=== PATIENT | female | born 1995 | race American Indian/Alaskan Native ===

== ENCOUNTER 2018-05-07 15:13 | Observation (INO) | payer MEDICAID ==
[2018-05-07] MEDS ORDERED: Carboprost Tromethamine 250 MCG/1 ML Amp IM PRN (15:57)
[2018-05-07] MEDS ORDERED: Sodium Chloride 0.9% 10 ML Syringe FLUSH PRN ×2 (15:57→23:04)
[2018-05-07] MEDS ORDERED: Oxytocin/Normal Saline 30 UNIT/500 ML BAG IV PRN (15:57)
[2018-05-07] MEDS ORDERED: Lidocaine 1% 30 ML SDV INJECT PRN (15:57)
[2018-05-07] MEDS ORDERED: Misoprostol 25 MCG (1/4 of 100 MCG) Tab VAG PRN (15:57)
[2018-05-07] MEDS ORDERED: Tranexamic Acid 1,000 MG in Sodium Chloride 0.9% 100 ML IV PRN (15:57)
[2018-05-07] MEDS ORDERED: Lactated Ringers 500 ML IV ONE (15:57)
[2018-05-07] MEDS ORDERED: Misoprostol 400 MCG (4 X 100 MCG TAB) RECTAL PRN (15:57)
[2018-05-07] MEDS ORDERED: Acetaminophen 325 MG Tab PO PRN (15:57)
[2018-05-07] MEDS ORDERED: Methylergonovine 0.2 MG/1 ML Amp IM PRN (15:57)
[2018-05-07] MEDS ORDERED: Oxytocin/Normal Saline 30 UNIT/500 ML BAG IV SCH (16:00)
[2018-05-07] MEDS ORDERED: Penicillin G Potassium 5 MILLUNITS in Sodium Chloride 0.9% 100 ML IV ONE (16:08)
[2018-05-07] MEDS: Lactated Ringers 1,000 ML IV SCH ×2 (16:25→20:32)
[2018-05-07] MEDS: Penicillin G Potassium 2.5 MILLUNITS in Sodium Chloride 0.9% 100 ML IV SCH (19:46)
[2018-05-07] MEDS ORDERED: fentaNYL 100 MCG/2 ML SDV ONE (20:08)
[2018-05-07] MEDS: Ondansetron 4 MG/2 ML SDV IV PRN (20:16)
--- NOTE | 2018-05-07 20:44 | PCM.SN ---
- Free Text/Narrative Note: Intrathecal. Sittting position, sterile prep and drape. 1 % lidocaine w bicarb for skinwheal to L2 L3 interspace. Introducer, 24 pa pencan x 2. Pos CSF, neg heme, neg parasthesia. 20 mcg pf sufenta, 30 mcg pf fentanyl, 0.4 ml pf NS and 6 mg of 0.75% pf bupivacaine injected after CSF aspiration. Pt to L lateral position. Procedure time 2014 to 2044
[2018-05-07] MEDS ORDERED: Docusate Sodium 100 MG Cap PO PRN (23:04)
[2018-05-07] MEDS ORDERED: Benzocaine/Menthol 20%-0.5% Spray 56 GM Canister TOP PRN (23:04)
[2018-05-07] MEDS ORDERED: Zolpidem 5 MG Tab PO PRN (23:04)
[2018-05-07] MEDS ORDERED: Oxytocin 10 Units/1 ML SDV IM PRN (23:04)
[2018-05-07] MEDS ORDERED: Simethicone 80 MG Tab.Chew PO PRN (23:04)
[2018-05-08] MEDS: Penicillin G Potassium 2.5 MILLUNITS in Sodium Chloride 0.9% 100 ML IV SCH (00:36)
[2018-05-08] MEDS: Ondansetron 4 MG/2 ML SDV IV PRN (01:32)
[2018-05-08] MEDS: Prenatal Multivitamin with Calcium/Folic Acid/Iron Tab PO SCH (09:18)
[2018-05-08] MEDS: Ibuprofen 800 MG Tab PO PRN ×2 (09:18→19:54)
--- NOTE | 2018-05-08 09:24 | HP ---
PATIENT IDENTIFICATION: Aguila Larson is a 22-year-old, G4, P0-2-1-2, intrauterine at 41 and 1/7 weeks by 29-week ultrasound, who presents with occasional contraction and postdate . HISTORY OF PRESENT ILLNESS: The patient has been following Dr. Garcia at [facility] in [place] as well as in the [facility] where she recently moved a couple weeks ago. She presented to the [facility] today and saw Dr. Gordon. Due to her postdates as well as having some contractions and then with serial evaluations and cervical change as well as with history of living far from the hospital and current weather system coming, shared decision was made to proceed with augmentation of labor. To put this in context, she is GBS positive. Records were called for, reviewed as below, and supplemented by the patient's history. ANTEPARTUM LABORATORY DATA: ABO blood type A positive. Negative antibody. Rubella immune. Syphilis antibody is nonreactive. Negative hepatitis B surface antigen. Negative hep C, HIV, GC, and Chlamydia. Wet prep positive for clue cells on 02/10/2018. One-hour GTT on 02/17/2018, was 99, and GBS was positive on 03/31/2018. OBSTETRICAL HISTORY: 1. On 04/10/2015, 30 weeks, delivered a female, spontaneous vaginal delivery, weighing 2268 g, complicated by preeclampsia. 2. On 11/14/2011, 30 weeks, male, spontaneous vaginal delivery, weighing 2268 g with abruption noted. 3. Spontaneous AB in 2013 with a D and C. ALLERGIES: Bactrim. MEDICATIONS: vitamins. PAST MEDICAL/PAST SURGICAL HISTORY: Remarkable for D and C and fasciotomy after age 1 due to staph infection and left leg fracture x2 with rods with second surgery. Otherwise past medical history as above. FAMILY HISTORY: Negative family history of defects, clotting disorders, or anesthesia problems. SOCIAL HISTORY: The patient recently moved to the [facility]. Had been in the [facility] before. Does smoke. Denies any alcohol and denies drug use in the past as had been in the Treatment Center. REVIEW OF SYSTEMS: The patient describes swelling, decreased in the legs. Denies any headaches, visual changes, or upper abdominal pain. She describes some minimal spotting after vaginal exam done over at the clinic. Otherwise, review of systems was fully reviewed and felt to be noncontributory. OBJECTIVE: Vital Signs: Blood pressure 118/80, heart rate 92. The patient feels afebrile. Respiratory rate is between 12 and 16. Appearance: Female, appears her stated age, acting appropriate for age, nontoxic in appearance. HEENT: Head is atraumatic. EOMs intact. PERRLA. No scleral icterus. No obvious otorhinorrhea. Mucous membranes are moist. Neck: No obvious tenderness. Lungs: Clear to auscultation bilaterally. No increased work of breathing. Heart: S1 and S2. Regular rate and rhythm. Abdomen: Gravid. [employer]ak indeterminate. Nontender and nondistended. Bowel sounds positive. No organomegaly, pulsatile masses, or obvious hernias. No rebound, rigidity, or guarding. Genitourinary: Normal external female genitalia. Normal position and presentation of the urethra. Vaginal exam reveals her to be 4 cm, 75% effaced, -1 to -2 station. Bag of water felt. Vertex suspected. Extremities: Trace pedal edema with scar on the left leg. Deep tendon reflexes 2/4 bilaterally and symmetric in the lower extremities. Psychiatric: Mood and affect are congruent. Judgment and insight are intact. Skin: Without any cyanosis, clubbing, or jaundice. LABORATORY DATA: Pending is a UDS as well as a CBC. NST found to be reactive and reassuring. Tocometer difficult to read contractions versus irritability. The patient describes having some occasionally. ASSESSMENT: 1. Intrauterine at 41 and 1/7 weeks by 29-week ultrasound. 2. Group B Streptococcus positive. We will start penicillin immediately. 3. Cervical change. The patient was 4 cm on above evaluation, and prior at the clinic, she was approximately 2 cm, having occasional contractions, and after further review, the patient does describe having quick rapid delivery and labors. In light of this as well as storm coming and her living far from the hospital, we will proceed with augmentation of labor with slow Pitocin and start penicillin as above. 4. History of preeclampsia with previous . Stated she took baby aspirin 12 or 13 times during her . 5. History of abruption. 6. History of delivery x2. 7. 4, para 0-2-1-2. 8. History of Chlamydia per chart review. Negative as above under antepartum labs. PLAN: The patient will be admitted, penicillin started, Pitocin thereafter, and we will continue to follow clinically and closely. The patient understands and agrees with the above treatment plan. [facility] /[id number]
--- NOTE | 2018-05-08 09:36 | PN ---
DATE: 05/07/2018 SUBJECTIVE: The patient is feeling her contractions a little bit more. Pitocin has been started. OBJECTIVE: heart tones in the 130s to 140s, reactive in nature. Tocometer reveals contractions every 2 to 3 minutes. Vaginal exam reveals her to be 5 cm, 75% effaced, -1 to - 2 station, vertex suspected and bag of water is felt. Last blood pressure 128/80 with a heart rate of 81. LABORATORY DATA: Revealed a white cell count of 9.1, hemoglobin of 11.1, platelets of 143,000. Urine drug screen negative. ASSESSMENT AND PLAN: Intrauterine at 41 and 1/7 weeks by 29-week ultrasound, GBS positive status. The patient with second dose of penicillin due at 8:30, approximately an hour from now, admitted with cervical change and contractions with history of preeclampsia and abruption with previous pregnancies, history of delivery x2 in a G4, P0-2-1-2, now diagnosed with gestational thrombocytopenia. We will continue to follow clinically and closely. Pain meds as needed. We will consider artificial rupture of membranes in the future. The patient understands and agrees with the above treatment plan. [facility] /[id number]
--- NOTE | 2018-05-08 09:39 | PN ---
DATE: 05/07/2018 SUBJECTIVE: The patient is comfortable status post her intrathecal. OBJECTIVE: Last blood pressure was 121/76, heart rate 78. Tocometer reveals contractions every 2 to 4 minutes on average. heart tones 135 baseline and reactive. Vaginal exam reveals her to be 7 cm, 80% effaced, -1 station, vertex suspected, and artificial rupture of membranes done after discussion with the patient yielding copious amounts of clear fluid with some minimal bloody show. ASSESSMENT AND PLAN: Intrauterine at 41 and 1/7 weeks by 29 week ultrasound, group B Streptococcus positive status. The patient now status post 2 doses of penicillin, admitted with cervical change and noted to have gestational thrombocytopenia with history of delivery x2 with abruption of preeclampsia with previous , in a G4, P0-2-1-2, now with Pitocin at 8 milliunits per minute and having continued cervical change status post artificial rupture of membranes as above. We will continue to follow clinically and closely. The patient understands and agrees with the above treatment and plan. [facility] /[id number]
--- NOTE | 2018-05-08 10:00 | DEL ---
DATE: 05/07/2018 PREOPERATIVE DIAGNOSES: 1. Intrauterine at 41 and 1/7 weeks by 29-week ultrasound. 2. Cervical change, labor suspected upon admission. 3. Group B streptococcus positive, antibiotics given appropriately. 4. Gestational thrombocytopenia. 5. History of preeclampsia with 1 previous . 6. History of abruption with 1 previous . 7. History of delivery x2. 8. History of Chlamydia, resolved in this . Please see history and physical. 9. 4, para 0-2-1-2. POSTOPERATIVE DIAGNOSES: 1. Intrauterine at 41 and 1/7 weeks by 29-week ultrasound, delivered. 2. Cervical change, labor suspected upon admission. 3. Group B streptococcus positive, antibiotics given appropriately. 4. Gestational thrombocytopenia. 5. History of preeclampsia with 1 previous . 6. History of abruption with 1 previous . 7. History of delivery x2. 8. History of Chlamydia, resolved in this . Please see history and physical. 9. 4, para 0-2-1-2. 10.Nuchal cord x1, reduced bluntly with delivery. PROCEDURES PERFORMED: NST, Pitocin augmentation, artificial rupture of membranes, spontaneous vaginal delivery. [employer] INSPECTOR: Zita Alamo, MS-III. ANESTHESIA/ANALGESIA: The patient did receive an intrathecal in the first stage of labor. ESTIMATED BLOOD LOSS: 350 mL. FINDINGS: Female. scores 9 and 9. Weighing 8 pounds 2 ounces (3695 g). SUMMARY OF EVENTS: The patient is a 22-year-old G4, P0-2-1-2, intrauterine at 41 and 1/7 weeks by 29-week ultrasound, who was admitted with cervical change. She is GBS positive status. Penicillin was given, and she received at least 2 doses prior to delivery. As part of the workup, gestational thrombocytopenia was noted, platelets in the 140,000 range. She subsequently underwent the above procedures, including Pitocin augmentation and artificial rupture of membranes. She did receive an intrathecal in the first stage of labor. She was found to be complete. I was called to the room and donned sterile gown and gloves as well did Zita Alamo. She subsequent started pushing with contractions. vertex was delivered in RUSTY presentation. Nuchal cord x1 was noted, reduced bluntly with delivery at that time, and anterior and posterior shoulder as well as rest of the infant delivered without difficulty thereafter. Mouth and nares were suctioned. Cord was doubly clamped and cut, and was resuscitated on mother's abdomen. Then, approximately 10 mL of cord blood was obtained for labs. Placenta was then delivered with gentle cord traction and fundal massage within 30 minutes. Perineum, vagina, perirectal areas were then examined and noted to have small bilateral periurethral abrasions, nonbleeding, non-repaired after discussion with the patient. Mother and are currently stable at the time of dictation. [facility] /[id number]
--- NOTE | 2018-05-08 10:17 | OBOUT ---
DATE: 05/07/2018 DATE AND TIME OF NST: Date: 05/07/2018 Time: 1537 hours to 1557 hours. REASON FOR NST: 1. Intrauterine at 41 and 1/7 weeks by 29-week ultrasound. 2. GBS positive. 3. Cervical change. 4. History of preeclampsia. 5. History of abruption. 6. History of delivery x2. 7. 4, para 0-2-1-2. NST INTERPRETATION: During this time period, heart tone baseline is approximately 125 to 130 and there are at least two 15 x 15 beats per minute accelerations making this strip reactive. It is also noted to be reassuring. Tocometer reveals irritability versus contractions. ASSESSMENT: 1. Nonstress test, reactive and reassuring. 2. Tocometer with questionable contractions versus irritability. The patient is mildly feeling occasional contraction. PLAN: Please see admit history and physical for further details. [facility] /[id number]
--- NOTE | 2018-05-08 10:48 | PN ---
DATE: 05/08/2018 SUBJECTIVE: Aguila is day 1 from spontaneous vaginal delivery of term female at 41 weeks and 1 day gestation. Overnight, she developed nausea that was relieved with ondansetron. She also had multiple episodes of diarrhea with associated symptoms of chills. She has not had a documented fever. She is able to tolerate activity, drinking liquids, and some solid foods. She is also urinating well. She reports bleeding and cramping as expected. This is relieved with Tylenol. OBJECTIVE: Vital Signs: Blood pressure 132/67, heart rate 67 beats per minute, respiration rate 16 breaths per minute. General: The patient is alert, cooperative, and in no acute distress. HEENT: Grossly normal. Lungs: Clear to auscultation bilaterally. Heart: Regular rate and rhythm. Abdomen: Uterus is palpated 2 cm below the umbilicus. Abdomen is soft, nontender. Extremities: No edema or erythema present. Calves are nontender to palpation. RECENT LABORATORY VALUES: White blood cell count of 10.2, red blood cell count of 3.73, hemoglobin of 9.5, and platelets of 111. ASSESSMENT: Aguila is day 1 from spontaneous vaginal delivery of a term female at 41 weeks and 1 day gestation. 1. Group B streptococcus positive. Received 2 doses of penicillin during labor. 2. History of delivery x2. 3. 4, now para 3. 4. History of preeclampsia. 5. Gestational thrombocytopenia. 6. Nuchal cord x1, reduced. PLAN: We will continue to follow the patient closely and clinically with routine cares. The patient is . [facility] /[id number] seen and agreed -DCW The patient was seen today by myself and Dr. Adis Rivers. Assessment and plan are under advisement of Dr. Rivers. Zita Alamo [facility]
[2018-05-08] MEDS: Acetaminophen 325 MG Tab PO PRN (12:15)
[2018-05-09] MEDS: Acetaminophen 325 MG Tab PO PRN (00:49)
[2018-05-09] MEDS: Ibuprofen 800 MG Tab PO PRN (07:24)
[2018-05-09] MEDS: Prenatal Multivitamin with Calcium/Folic Acid/Iron Tab PO SCH (10:18)
--- NOTE | 2018-05-09 11:18 | PN ---
DATE: 05/09/2018 SUBJECTIVE: The patient is day 2 from spontaneous vaginal delivery of a term female at 41 weeks and 1/7 days gestation. She has had resolution of her diarrhea. She has also developed low back pain overnight. She describes the back pain as an ache that is in her lower back and radiates to each side. She denies pain running down either leg, loss of sensations, or loss of strength. This pain is unrelieved with positional changes and hydration. She is not taking medication for this pain at this time. She is tolerating activities, eating, urinating, and stooling well. She has still bleeding and cramping as expected, but she has no concerns there. She wishes to use a warm bath for relief of her back pain. OBJECTIVE: Vital Signs: Temperature of 36.7 degree Celsius, blood pressure 121/68, heart rate 64 beats per minute, respiration rate 16 breaths per minute. General: The patient is alert, cooperative, and in mild distress from her back pain as noted above in HPI. HEENT: Grossly normal. Lungs: Clear to auscultation bilaterally. Heart: Regular rate and rhythm. Abdomen: Uterus is palpated about 2 cm below the umbilicus. Abdomen is soft and nontender. Back: Mild tenderness to palpation of the low back at the level of L2 and L3. Extremities: No edema or erythema present. No tenderness to palpation of calves bilaterally. LABORATORY DATA: Pending at this time. CBC was placed prior to discharge and we are waiting on the results of that. ASSESSMENT: Aguila is a day 2 patient from spontaneous vaginal delivery of a term female at 41 weeks and 1 day gestation. 1. She is group B Streptococcus positive, received 2 doses of penicillin during delivery. 2. History of delivery. 3. History of placental abruption. 4. History of preeclampsia. 5. 4 now para 3. 6. History of delivery x2. 7. History of chlamydial infection. 8. Gestational thrombocytopenia. 9. Nuchal cord x1 present at delivery, which was reduced during delivery. 10.Anemia present via CBC results. PLAN: The patient will be discharged to home today with her baby girl. She has no concerns at this time. She was given advisement on using a warm bath, hot pads, and ibuprofen and Motrin for her back pain. The patient is breast feeding. The patient was instructed to follow up with Dr. Genoveva Garcia in 6 weeks for followup. The patient was seen today by myself and Dr. Adis Rivers. Assessment and plan under advisement of Dr. Rivers. seen and agreed [facility] /[id number] [id number]
--- NOTE | 2018-05-09 12:15 | DISCH ---
ADMITTING DIAGNOSES: 1. Intrauterine at 41 and 1/7 weeks by a 29-week ultrasound. 2. Group B streptococcus positive. 3. Contractions with cervical change upon admission. 4. Gestational thrombocytopenia. Platelets of 143,000 upon admit. 5. History of preeclampsia with previous . 6. History of abruption with previous . 7. History of delivery x2. 8. History of chlamydia-negative, earlier in the . 9. 4, para 0-2-1-2. DISCHARGE DIAGNOSES: 1. Intrauterine at 41 and 1/7 weeks by a 29-week ultrasound, delivered. 2. Group B streptococcus positive. 3. Contractions with cervical change upon admission. 4. Gestational thrombocytopenia. Platelets of 143,000 upon admit. 5. History of preeclampsia with previous . 6. History of abruption with previous . 7. History of delivery x2. 8. History of chlamydia-negative, earlier in the . 9. 4, para 0-2-1-2. 10.Number nuchal cord x1, reduced bluntly with delivery. 11.Anemia of acute blood loss. Hemoglobin dropping down to 9.5 from predelivery hemoglobin 11.1 and gestational thrombocytopenia with platelets of 111,000 on 05/08/2018. PROCEDURES PERFORMED: 1. Nonstress test. 2. Pitocin augmentation. 3. Artificial rupture of membranes. 4. Spontaneous vaginal delivery per Dr. Rivers. HISTORY OF PRESENT ILLNESS: Please see H and P. SUMMARY OF HOSPITAL COURSE: The patient was admitted on the above date with the above diagnoses, underwent the above procedures. She did receive penicillin due to her GBS positive status. She went on to have a spontaneous vaginal delivery yielding a female, scores of 9 and 9, weighing 8 pounds 2 ounces (3695 g). Please see the delivery note for further details. day #1 as well as day #2, date of discharge, please see progress notes in terms of discharge evaluation done in conjunction and seen and agreed with COREY Larson. CONDITION ON DISCHARGE COMPARED TO CONDITION ON ADMISSION: Improved. DISCHARGE INSTRUCTIONS: 1. Diet as tolerated. 2. Activity: No lifting more than 20 pounds. No sit-ups, straining, and pelvic rest for the next 6 weeks with immediate return to fertility discussed with the patient. 3. Reasons to return or go to the emergency room were discussed with the patient in detail including, but not limited to, temperature greater than 100.4, foul-smelling discharge, red hot tender breasts, or increased vaginal bleeding. DISCHARGE MEDICATIONS: 1. [id number] Tylenol or ibuprofen for pain. 2. Iron sulfate 325 b.i.d. x6 weeks as well as Colace 100 mg p.o. b.i.d. p.r.n. #60, no refills. FOLLOWUP: Follow up in 6 weeks for , and she wishes to follow up with Dr. Garcia for this. An appointment will be made. I did discuss the importance of followup with her infant. She wishes to follow up in [place] for this, and I did discuss with her the importance of followup and ramifications of not doing so as well as reasons to return or go to the emergency room in regard to her . She understands and agrees with the above treatment plan. [facility] /[id number]
== END 2018-05-09 12:43 | disposition home or self-care (01) ==
LOC: DL.OBCHECK 15:13 → DL.OB 15:37
PROVIDERS: ADMIT Family Medicine; ATTEND Family Medicine
DX: O48.0 Post-term pregnancy (principal); Z37.0 Single live birth; Z3A.41 41 weeks gestation of pregnancy; O99.12 Other diseases of the blood and blood-forming organs and certain disorders involving the immune mechanism complicating childbirth; D69.6 Thrombocytopenia, unspecified; O99.824 Streptococcus B carrier state complicating childbirth; B95.1 Streptococcus, group B, as the cause of diseases classified elsewhere; O99.02 Anemia complicating childbirth; D62 Acute posthemorrhagic anemia; Z87.59 Personal history of other complications of pregnancy, childbirth and the puerperium
CPT/HCPCS: 36415; 59025; 59409; 80305; 85027; A9270; J2405; J2540; J2590; J7050; J7120

== ENCOUNTER 2020-03-03 04:34 | Inpatient (IN) | payer MEDICAID ==
[2020-03-03] MEDS ORDERED: Simethicone 80 MG Tab.Chew PO PRN (05:25)
[2020-03-03] MEDS ORDERED: Misoprostol 400 MCG (4 X 100 MCG TAB) RECTAL PRN (05:25)
[2020-03-03] MEDS ORDERED: Benzocaine/Menthol 20%-0.5% Spray 56 GM Canister TOP PRN (05:25)
[2020-03-03] MEDS ORDERED: Oxytocin 10 Units/1 ML SDV IM PRN (05:25)
[2020-03-03] MEDS ORDERED: Carboprost Tromethamine 250 MCG/1 ML Amp IM PRN (05:25)
[2020-03-03] MEDS ORDERED: Acetaminophen 325 MG Tab PO PRN (05:25)
[2020-03-03] MEDS ORDERED: Tranexamic Acid 1,000 MG in Sodium Chloride 0.9% 100 ML IV PRN (05:25)
[2020-03-03] MEDS ORDERED: Ferric Subsulfate Topical Soln 8 GM (8 ML) Bottle ONE (06:57)
[2020-03-03] MEDS ORDERED: Oxytocin/Normal Saline 0 UNIT/0 ML BAG ONE (06:58)
[2020-03-03] MEDS ORDERED: Silver Nitrate Applicator Each ONE (06:58)
[2020-03-03] MEDS: Ibuprofen 800 MG Tab PO PRN ×2 (08:29→17:21)
[2020-03-03] MEDS: Ferrous Sulfate 325 MG Tab PO SCH (11:12)
[2020-03-03] MEDS: Prenatal Multivitamin with Calcium/Folic Acid/Iron Tab PO SCH (11:12)
[2020-03-03] MEDS: ceFAZolin 1 GM in Premix Bag 1 BAG IV SCH (19:33)
--- NOTE | 2020-03-03 19:43 | HP ---
CHIEF COMPLAINT: Transfer from outside facility post delivery complicated by hemorrhage. HISTORY OF PRESENT ILLNESS: The patient is a 24-year-old 5, now para 2-2-1-4, who delivered a baby this morning at the [place] [facility] at 4:12 a.m. Provider called stating that the patient presented and precipitously delivered within approximately 20 minutes of arrival. She had no care. Initially at delivery, she had approximately 250 mL of estimated blood loss and the placenta was not forthcoming. Delivering provider is not a routine obstetrical provider and their facility is not a delivering hospital. Therefore, I was called to accept the mother and baby in transfer and that was agreed upon. There was a prolonged time between this initial phone call and ambulance transfer being arranged due to some rules and regulations with how patients are transferred. When I called for an update, the placenta still had not delivered and she had now had an additional 500 mL of blood loss. I directed the provider to remove the placenta from the vaginal opening as it was presenting. The baby was en route via ambulance and there were plans for the patient to be life- flighted to [place] because she went on for an additional hemorrhage of about 1500 mL after the placenta delivered. However, after [facility] had accepted, apparently they called back and would be unavailable for approximately 80 minutes. The patient was then going to be taken by ground ambulance to [place]. At this stage I advised transfer by ground to our facility as we would be able to do more to control here at [facility]. I reiterated that she needed bimanual massage. I believe she received a total of 2 doses of 10 mg of IM Pitocin, 1 dose of TXA, 2 L of IV fluids, 800 mcg of rectal Cytotec. They did not have a Hemabate or Methergine available. Provider did accompany the patient for the ambulance transfer, and prior to leaving the hospital in [place], they did report the placenta had delivered, and en route the bleeding was well controlled and her uterus was firm and below the umbilicus. Upon arrival, the patient was on the ambulance cart and pain seemed well controlled at that time. There was no obvious bleeding when we transferred her to the bed. Quick assessment was performed as follows below. HISTORY: No care this . Prior notes indicated blood type A+. OBSTETRICAL HISTORY: 1. 11/14/2011, vaginal delivery, viable male at 30 weeks' gestation, weighing 5#, (about 2268g), complicated by preeclampsia. 2. 2013 with D&C. 3. 04/10/2015, vaginal delivery, a viable female at 30 weeks' gestation, 5# (about 93282b) 4. 05/07/2018, full-term 41+ week female infant, delivered vaginally here at [facility]. weight 3695g, Apgars 9&9. PAST MEDICAL HISTORY: Methamphetamine abuse, history of being sober for 5 years, but restarted using recently. Chlamydia. Placental abruption. Preeclampsia. Needle phobia. Tobacco abuse. SURGERIES: [place] teeth, left fib-tib ORIF, rods have since been removed, right 3rd metatarsal partial bone resection, D&C. . MEDICATION: vitamin. ALLERGIES: Bactrim. FAMILY HISTORY: Father, heart disease, diabetes, stroke, heart attack. He from a ruptured stomach ulcer. Mother is , hit by a motor vehicle while walking. Extended family history, diabetes and heart disease. No known defects, chromosomal anomalies, bleeding or clotting disorders, or severe anesthesia reactions. SOCIAL HISTORY: The patient is unmarried. She quit her job at [employer] because they were requiring her to continue to do heavy lifting. Father of the baby is the same as for her last child and he is not currently working. Living in [place]. Has custody of her youngest daughter. Oldest daughter lives with a grandmother. Son is in placement and she does not have contact. REVIEW OF SYSTEMS: After initial assessment, review was completed. The patient denies any fever, chills, nausea, vomiting, diarrhea, constipation, headaches, blurry vision, chest pain, shortness of breath, abdominal trauma, skin rashes, or other lesions. She is not specific about when she last used methamphetamine, but admitted it was recent. Denied other street drugs and alcohol. Did report she was a light smoker. PHYSICAL EXAMINATION: Vital Signs: T 96.6, Pulse 116, BP 138.80, Resp 16. Head: Normocephalic, atraumatic. Eyes: Color contacts noted. Pupils equal, round, and reactive. Ears, Nose, Mouth: All within normal limits. Mucous membranes are pink and moist. Neck: Supple with no adenopathy. Heart: Regular without murmur. Lungs: Clear to auscultation bilaterally. Abdomen: Soft, nontender. Fundus firm and below the umbilicus. The patient is reporting some right upper quadrant pain, but there palpates no masses. McBurney point tenderness is negative. Genitourinary: External genitalia are within normal limits. No obvious trauma noted. Speculum exam reveals the cervix to be intact with no lacerations. Vaginal sidewalls are normal. No lacerations. Vestibule is remarkable for a superficial anterior laceration that is hemostatic and did not need repair. Posteriorly, no lacerations. Extremities: Normal range of motion. No edema. Psychiatrical: The patient's pain is out of proportion to physical findings and exam. She is just about to fall asleep through much of the exam time. The patient did receive 4 mg of morphine during her transport and I am uncertain how much narcotic she received prior to being transported. She also is known to be a methamphetamine user and maybe coming off that as well. She does request that we hurry up and get her assessment over so that she can go to sleep. Skin: Without acute lesions or skin rashes. Neurological: Reflexes are 2+ equal. No clonus. LABORATORY DATA: Initial hemoglobin in [place] was reported as 12. First hemoglobin we were able to get here was 7.5. ASSESSMENT: 1. Status post precipitous vaginal delivery. 2. Prolonged stage III lasting over 2-1/2 hours. 3. hemorrhage likely due to uterine atony and placental retention for prolonged period of time. 4. No care. 5. Methamphetamine abuse. 6. Tobacco abuse. 7. History of labor and delivery x2. 8. Elevated blood pressure. 9. History of placental abruption. 10 Anemia of acute blood loss. PLAN: The patient is doing well at this time. Blood was sent from [place] to initiate for her, however, it cannot be verified. Therefore, will be discarded and we will transfuse her with typed and cross-matched blood here at our facility initially with 1 unit and then reassess and recheck her hemoglobin in 6 hours to see if additional blood is necessary. Reassured the patient that her clinical findings are now stable and she does not have any additional sources of bleeding that need to be addressed at this time, but we will be watching her closely. We will get a full panel of labs including urine drug screen. We will be making a social work msw consult for disposition on the baby and cord stat will be ordered on the umbilical cord. Placenta was intact full term with some mild calcifications noted. There was also a large approximate 500 mL clot attached to the placenta. It was well organized, but with the prolonged transfer time, it may represent an abruption, and we will continue to watch her for routine cares. Her blood pressures have been elevated despite being severely anemic. Therefore, a full preeclampsia panel will also be evaluated to see if she rules in or out, especially given her history of preeclampsia. [facility] /[id number] BABITA
[2020-03-04] MEDS: Ibuprofen 800 MG Tab PO PRN ×3 (00:52→17:14)
[2020-03-04] MEDS: ceFAZolin 1 GM in Premix Bag 1 BAG IV SCH ×4 (04:04→18:02)
[2020-03-04] MEDS: Docusate Sodium 100 MG Cap PO PRN (08:58)
[2020-03-04] MEDS: Prenatal Multivitamin with Calcium/Folic Acid/Iron Tab PO SCH (08:58)
[2020-03-04] MEDS: Ferrous Sulfate 325 MG Tab PO SCH (08:58)
[2020-03-04] MEDS: Sodium Chloride 0.9% 10 ML Syringe FLUSH PRN ×3 (11:05→18:38)
[2020-03-04 11:43] LABS: C.TRACHOMATIS BY TMA Negative (Negative); N.GONORRHOEAE BY TMA Positive (Negative)
[2020-03-04] MEDS ORDERED: Measles, Mumps & Rubella Vaccine 0.5 ML SDV SUBCUT ONE ×2 (13:21→16:45)
[2020-03-04] MEDS ORDERED: Azithromycin 250 MG Tab PO ONE (13:22)
--- NOTE | 2020-03-05 00:56 | PN ---
DATE: 03/04/2020 SUBJECTIVE: day #1, status post precipitous vaginal delivery in [facility] facility complicated by hemorrhage of approximately 250 mL due to uterine atony as well as prolonged 3rd stage of labor. The patient received several uterotonic agents and ultimately bleeding seemed to have been controlled after adequate expression of placenta and clots along with adequate uterine massage. She has received 2 units so far of total blood transfusion. Nursing staff reports that she is still having some dizzy and lightheadedness when they try to get her up to go to the bathroom. She is denying any chest pain or shortness of breath. Bleeding has been very small amounts since arrival at our hospital. Otherwise, she reports that she is feeling well, mostly just tired and wanting to sleep. Also, asked some questions about breast milk supply due to the severe blood loss. She understands that she will likely have some diminished milk supply, but does plan on . OBJECTIVE: General: A pleasant 24-year-old female. Vital Signs: Temperature is 98.3, pulse 100, blood pressure 140/72, respiratory rate 16, O2 saturations 98% on room air. HEENT: Unremarkable. Heart: Regular without murmur. Lungs: Clear to auscultation bilaterally. Abdomen: Soft, nontender, and fundus is firm and below the umbilicus. Extremities: No edema, erythema, or tenderness noted. LABORATORY REVIEW: Admission hemoglobin 7.6, transfused 1 unit. Recheck 7.5, transfused a 2nd unit. This morning's hemoglobin is 6.9, WBCs 11.9, platelets 126. [facility] labs: Lactate dehydrogenase of 376, protein creatinine ratio of 276.5 mg/g. Trace protein and trace leukocyte esterase on UA. Urine drug screen positive for amphetamine and methamphetamine, where the patient admitted use of methamphetamine. Opiates are positive. Suspected due to pain medications administered at [facility] and during transport. Syphilis serology nonreactive. Chlamydia is negative. HIV negative. Gonorrhea positive. Rubella equivocal. ASSESSMENT: 1. Post vaginal delivery, day #1, now doing well. 2. Anemia of acute blood loss. 3. hemorrhage due to uterine atony and prolonged 3rd stage of labor. 4. No care. 5. Methamphetamine abuse. 6. Tobacco abuse. 7. History of labor and delivery x2. 8. History of preeclampsia, prior . 9. History of placental abruption, prior , and some suspicion for abruption this as well. 10.Elevated blood pressures, however, urine protein-creatinine ratio less than 300, but she should be monitored closely for preeclampsia. 11.Anemia of acute blood loss. 12.High-risk social situation. PLAN: Continue routine post vaginal delivery cares at this time. However, with her hemoglobin being so low, she will get another unit of blood transfused with another hemoglobin check 6 hours after that. We will continue to monitor her symptoms and for any additional blood losses, although I believe that our timing between lab draws and blood transfusions has been difficult to manage and we do not know how low she really would have been at all if the fluids had time to equilibrate prior to lab draws. She still should be monitored for preeclampsia as protein creatinine ratio really is borderline, although technically less than 300. [employer] will be evaluating the situation, and as far as I am aware, baby will be sent home with mother as long as there is someone else in the home to help monitor for baby safety and that mother is no longer using methamphetamine. The patient's questions were answered. Dr. Davis will be covering her through the weekend. [facility] /[id number]
[2020-03-05] MEDS: Ibuprofen 800 MG Tab PO PRN (08:30)
[2020-03-05] MEDS ORDERED: Diphtheria,Pertussis(Acell),Tetanus Vaccine 0.5 ML SDV IM ONE (08:35)
[2020-03-05] MEDS: Prenatal Multivitamin with Calcium/Folic Acid/Iron Tab PO SCH (10:44)
[2020-03-05] MEDS: Docusate Sodium 100 MG Cap PO PRN (10:44)
[2020-03-05] MEDS: Ferrous Sulfate 325 MG Tab PO SCH (10:44)
--- NOTE | 2020-03-05 11:09 | PN ---
DATE: 03/05/2020 LOCATION: [facility]. SUBJECTIVE: The patient is day #2 from a vaginal delivery. She did deliver precipitously in [place], [place]. She did have a retained placenta and hemorrhage, was transferred to [facility] with a suspected estimated blood loss of 2500 mL. She also has gestational hypertension and has now received 3 units of packed red blood cells. This morning her and baby are both doing well. Lochia is minimal and she feels much better. PHYSICAL EXAMINATION: Vital Signs: Patient is afebrile. Blood pressure 136 to 141 over 71 to 86, heart rate 72 to 77, respiratory rate 14 to 20, and O2 saturation 98% to 100%. Abdomen: Fundus is firm below the umbilicus. Extremities: Nontender. No edema. Again, the patient does feel better. She did have her labs drawn here. She had limited to no care. Syphilis was negative. Chlamydia was negative. Hepatitis B was negative. Hep C negative. HIV negative. She did have a positive gonorrhea that was treated during this admission. She is rubella nonimmune. Urine drug screen was positive for methamphetamine. The patient upon reaching our hospital did have a hemoglobin of 7.6, again was given 3 units. The patient has now had multiple hemoglobins and her hemoglobin is remaining stable at 7.7 this morning, again consistent with acute blood loss anemia. The patient also has been diagnosed with gestational hypertension. She did have preeclampsia labs drawn, which were normal except for an LDH which was 376 and protein-creatinine ratio was 0.27. ASSESSMENT AND PLAN: day #2, status post precipitous vaginal delivery in [place], then with retained placenta and hemorrhage, now status post 3 units packed red blood cells and gestational hypertension. Mom and baby are both doing well now and her hemoglobin is stable. Therefore, she does desire discharge. Therefore, we will discharge her to home with iron. I also gave her Tdap, and she will follow up for her 6-week visit. [facility] /[id number] BABITA
== END 2020-03-05 18:00 | disposition home or self-care (01) | DRG 776 ==
LOC: DL.OB 07:21 → OBSVTOIN 07:21
PROVIDERS: ADMIT Family Medicine; ATTEND Family Medicine
DX: O72.1 Other immediate postpartum hemorrhage (principal); D62 Acute posthemorrhagic anemia; O99.325 Drug use complicating the puerperium; Z88.1 Allergy status to other antibiotic agents; F15.10 Other stimulant abuse, uncomplicated
CPT/HCPCS: 36415; 36430; 80305-QW; 80307; 81001; 82565; 82570; 83615; 84156; 84450; 84460; 84520; 84550; 85014; 85018; 85027; 86592; 86762; 86803; 86850; 86900; 86901; 86920; 86922; 87077; 87081; 87086; 87186; 87210; 87340; 87389; 87491; 87591; 90707; 90715; A9270-GY; G0010; J0690; J0696; J7050; P9016